=== PATIENT | female | born 1935 | race Hispanic/Latino ===

== ENCOUNTER 2016-06-21 10:45 | Inpatient (IN) | payer MEDICARE, OTHER ==
[2016-06-21 10:48] VITALS: BMI 25.7
--- NOTE | 2016-06-21 11:14 | ED PDOC ---
HPI: Chest Pain Time Seen by Provider: 06/21/16 10:54 History Per: Patient History/Exam Limitations: no limitations Additional Complaint(s): Patient is an 80 yr old female who is c/o dizziness (lightheadedness) that occurred this morning after waking up and walking from bedroom to bathroom. The pt is also c/o midline chest pain pressure-like since last night, and today she also has chest pain as well as some midepigatric abd pain. Also luis SOB. Patient's 1 week ago. PMD: Dr. Cabrales ([place], [place]) Past Medical History Reviewed: Historical Data, Nursing Documentation, Vital Signs Vital Signs: Last Vital Signs Temp 97.5 F L 06/21/16 10:48 Pulse 47 L 06/21/16 14:13 Resp 17 06/21/16 14:13 BP 172/88 H 06/21/16 10:48 Pulse Ox 98 06/21/16 14:55 - Medical History PMH: Atrial Fibrillation, HTN Other PMH: "Irregular Heart Beat", also c/o problem with spleen years ago - Family History Family History: States: Other Other Family History: Cancer - Social History Current smoker - smoking cessation education provided: No Alcohol: None - Home Medications Home Medications: Ambulatory Orders Medication Instructions Recorded ALPRAZolam [Xanax] 0.25 mg PO DAILY PRN 06/21/16 Benacar 20 mg PO DAILY 06/21/16 Carvedilol [Coreg Cr] 40 mg PO DAILY 06/21/16 Cholecalciferol [Vitamin D] 2,000 iu PO DAILY 06/21/16 Rivaroxaban [Xarelto] 20 mg PO DAILY 06/21/16 - Allergies Allergies/Adverse Reactions: Allergies Allergy/AdvReac Type Severity Reaction Status Date / Time Penicillins Allergy Verified 06/21/16 11:05 Review of Systems Constitutional: Negative for: Fever Cardiovascular: Positive for: Chest Pain Respiratory: Positive for: Shortness of Breath Gastrointestinal: Positive for: Nausea Neurological: Positive for: Dizziness. Negative for: Weakness Physical Exam - Reviewed Nursing Documentation Reviewed: Yes - Physical Exam Appears: Positive for: Non-toxic, No Acute Distress Head Exam: Positive for: ATRAUMATIC, NORMAL INSPECTION, NORMOCEPHALIC Skin: Positive for: Normal Color, Warm, Dry Eye Exam: Positive for: Normal appearance, EOMI, PERRL ENT: Positive for: Normal ENT Inspection Neck: Positive for: Normal Cardiovascular/Chest: Positive for: Irregularly Irregular Respiratory: Positive for: Other (decreased breath sounds to bases bilaterally) Gastrointestinal/Abdominal: Positive for: Soft, Tenderness (mild to midepigastric area). Negative for: Guarding, Rebound Back: Positive for: Normal Inspection Rectal: Positive for: Deferred Extremity: Positive for: Normal ROM Lymphatic: Positive for: Deferred Neurologic/Psych: Positive for: Alert. Negative for: Motor/Sensory Deficits - Laboratory Results Result Diagrams: 06/21/16 12:28 06/21/16 13:30 - ECG O2 Sat by Pulse Oximetry: 98 Medical Decision Making Medical Decision Making: Initial Impression: Dizziness and chest pain Differential diagnosis: dizziness secondary to bradycardia, chest pain possible ACS Initial Plan: Will check labs, EKG and get xrays; aspirin .Progress notes: Pt's dizziness is likely due to bradycardia. Rate will sometimes go down to 39. I will hospitalize pt. I discussed case with Dr. Kay and he recommends placing pt on Observation under his service. Disposition - Clinical Impression Clinical Impression: Chest pain, Atrial fibrillation, Bradycardia, Dizziness - Patient ED Disposition Is Patient to be Admitted: Yes - Disposition Disposition Time: 14:54 Condition: FAIR - Pt Status Changed To: Hospital Disposition Of: Observation - POA Present On Arrival: None
[2016-06-21 12:52] LABS: BASO % 0.8 % (0.0-2.0); EOS # 0.1 K/uL (0.0-0.7); EOS % 1.9 % (0.0-4.0); HEMATOCRIT 45.3 % (34.0-47.0); LYMPH # 2.3 K/uL (1.0-4.3); LYMPH % 40.7 % (20.0-40.0); MEAN CELL VOLUME 95.5 fl (81.0-99.0); MEAN CORPUSCULAR HEMOGLOBIN 30.8 pg (27.0-31.0); MEAN CORPUSCULAR HGB CONC 32.2 g/dL (33.0-37.0); MEAN PLATELET VOLUME 12.7 fl (7.2-11.7); MONO # 0.6 K/uL (0.0-0.8); MONO % 11.1 % (0.0-10.0); NEUT # 2.6 K/uL (1.8-7.0); NEUT % 45.5 % (50.0-75.0); NRBC % 0.2 % (0.0-0.0); RED CELL DISTRIBUTION WIDTH 16.1 % (11.5-14.5); WHITE BLOOD COUNT 5.8 K/uL (4.8-10.8)
[2016-06-21 13:00] LABS: RBC URINE 2 /hpf (0-3); URINE BACTERIA FEW (<OCC); URINE BILIRUBIN NEGATIVE (NEGATIVE); URINE BLOOD NEGATIVE (NEGATIVE); URINE COLOR YELLOW (YELLOW); URINE GLUCOSE (UA) NEG (Normal); URINE KETONE NEGATIVE (NEGATIVE); URINE LEUKOCYTE ESTERASE MOD Leu/uL (Negative); URINE PROTEIN NEGATIVE (NEGATIVE); URINE UROBILINOGEN 0.2-1.0 mg/dL (0.2-1.0); WBC URINE 7 /hpf (0-5)
[2016-06-21 13:20] LABS: PARTIAL THROMBOPLASTIN TIME 33.6 SECONDS (23.3-32.5)
[2016-06-21 13:45] LABS: ALB/GLOB RATIO 1.1 (1.0-2.1); ALKALINE PHOSPHATASE 103 U/L (38-126); ALT/SGPT 24 U/L (9-52); AST/SGOT 26 U/L (14-36); BLOOD UREA NITROGEN 36 mg/dl (7-17); CALCIUM 9.5 mg/dL (8.4-10.2); CARBON DIOXIDE 25 mmol/L (22-30); CHLORIDE 106 mmol/L (98-107); GFR AFRICAN-AMERICAN > 60; GLUCOSE,RANDOM 82 mg/dL (65-105); POTASSIUM 4.5 MMOL/L (3.6-5.0); SODIUM 142 mmol/l (132-148); TOTAL PROTEIN 7.4 G/DL (6.3-8.2)
--- NOTE | 2016-06-21 15:46 | RAD ---
PROCEDURE: CHEST RADIOGRAPH, 1 VIEW HISTORY: chest pain COMPARISON: None available. FINDINGS: LUNGS: Clear. PLEURA: No pneumothorax or pleural fluid seen. CARDIOVASCULAR: Normal. OSSEOUS STRUCTURES: No significant abnormalities. VISUALIZED UPPER ABDOMEN: Normal. OTHER FINDINGS: None. IMPRESSION: No active disease.
--- NOTE | 2016-06-21 19:42 | CP.PCM.HP ---
History of Present Illness - History of Present Illness History of Present Illness: CC: Chest Pain and Dizziness History of Present Illness: 80 yr old female who is c/o dizziness (lightheadedness) that occurred this morning after waking up and walking from bedroom to bathroom. The pt is also c/ o midline chest pain pressure-like since last night, and today she also has chest pain as well as some midepigatric abdominal pain. Also some SOB. Patient 's 1 week ago. Present on Admission - Present on Admission Any Indicators Present on Admission: No History of DVT/PE: No History of Uncontrolled Diabetes: No Urinary Catheter: No Decubitus Ulcer Present: No Review of Systems - Review of Systems All systems: reviewed and no additional remarkable complaints except - Cardiovascular Cardiovascular: As Per HPI Past Patient History - Infectious Disease Hx of Infectious Diseases: None - Past Medical History & Family History Past Medical History?: Yes Past Family History: Reviewed and not pertinent - Past Social History Smoking Status: Never Smoked Alcohol: None Drugs: Denies - CARDIAC Hx Cardiac Disorders: Yes Hx Atrial Fibrillation: Yes Hx Hypertension: Yes - PULMONARY Hx Respiratory Disorders: No - NEUROLOGICAL Hx Neurological Disorder: No - HEENT Hx HEENT Problems: No - RENAL Hx Chronic Kidney Disease: No - ENDOCRINE/METABOLIC Hx Endocrine Disorders: No - HEMATOLOGICAL/ONCOLOGICAL Hx Blood Disorders: No - INTEGUMENTARY Hx Dermatological Problems: No - MUSCULOSKELETAL/RHEUMATOLOGICAL Hx Falls: No - GASTROINTESTINAL Hx Gastrointestinal Disorders: No - GENITOURINARY/GYNECOLOGICAL Hx Genitourinary Disorders: No - PSYCHIATRIC Hx Substance Use: No - SURGICAL HISTORY Hx Surgeries: Yes Hx Splenectomy: Yes - ANESTHESIA Hx Anesthesia: Yes Hx Anesthesia Reactions: No Meds Allergies/Adverse Reactions: Allergies Allergy/AdvReac Type Severity Reaction Status Date / Time Penicillins Allergy Verified 06/21/16 11:05 Physical Exam - Constitutional Appears: Well, No Acute Distress - Head Exam Head Exam: ATRAUMATIC, NORMAL INSPECTION, NORMOCEPHALIC - Eye Exam Eye Exam: EOMI, Normal appearance, PERRL Pupil Exam: NORMAL ACCOMODATION, PERRL - ENT Exam ENT Exam: Mucous Membranes Dry, Normal Exam - Neck Exam Neck exam: Positive for: Full Rom, Normal Inspection - Respiratory Exam Respiratory Exam: Clear to Auscultation Bilateral, NORMAL BREATHING PATTERN - Cardiovascular Exam Cardiovascular Exam: Irregular Rhythm, +S1, +S2 - GI/Abdominal Exam GI & Abdominal Exam: Normal Bowel Sounds, Soft. absent: Tenderness - Extremities Exam Extremities exam: Positive for: normal capillary refill, normal inspection. Negative for: joint swelling - Back Exam Back exam: NORMAL INSPECTION. absent: CVA tenderness (L), CVA tenderness (R) - Neurological Exam Neurological exam: Alert, CN II-XII Intact, Normal Gait, Oriented x3, Reflexes Normal - Psychiatric Exam Psychiatric exam: Normal Affect, Normal Mood - Skin Skin Exam: Dry, Intact, Normal Color, Warm Results - Vital Signs Recent Vital Signs: Last Vital Signs Temp 97.8 F 06/21/16 19:29 Pulse 48 L 06/21/16 19:29 Resp 20 06/21/16 19:29 BP 126/57 L 06/21/16 19:29 Pulse Ox 100 06/21/16 19:29 - Labs Result Diagrams: 06/22/16 06:00 06/23/16 06:37 - EKG Data EKG Interpreted by: Other Rate: Bradycardia - EKG Data EKG comments: Atrial Fib with slow ventricular response Incomplete RBBB - Imaging and Cardiology Chest x-ray Status: Report reviewed by me Additional comment: IMPRESSION: No active disease. Venous US Status: Report reviewed by me Additional comment: NO DVT in her LE Assessment & Plan (1) Symptomatic bradycardia Assessment and Plan: Dizziness, Dehydration IVF Atropine on the bed side hold BB She may need Tilt Test Cardiology Consult with Status: Acute (2) Atrial fibrillation Assessment & Plan: Bradycardia Contionue Xoralto Status: Acute (3) Chest pain Assessment & Plan: R/O ACS ASA Seriial Trop and EKG 2D-Echo dry wall sprayer consult Status: Acute
[2016-06-21] MEDS: Sodium Chloride 0.45% 1,000 ML IV SCH (20:41)
--- NOTE | 2016-06-21 21:44 | US ---
EXAM: US Duplex Bilateral Lower Extremity Veins CLINICAL HISTORY: 80 years old, female; Signs and symptoms; Swelling of limb; Lower extremity, bilateral; Additional info: Swelling of the right le and dizziness with humaira TECHNIQUE: Real-time ultrasound scan of the veins of the bilateral lower extremities with color Doppler flow, spectral waveform analysis and compression. COMPARISON: No relevant prior studies available. FINDINGS: Right deep veins: Normal color and spectral Doppler flow. Normal compressibility. No deep vein thrombosis from common femoral to popliteal vein. Right superficial veins: Unremarkable. Left deep veins: Normal color and spectral Doppler flow. Normal compressibility. No deep vein thrombosis from common femoral to popliteal vein. Left superficial veins: Unremarkable. Soft tissues: No popliteal cyst. IMPRESSION: 1. No evidence of DVT within the lower extremities. 2. Incidental/non-acute findings are described above.
[2016-06-22] MEDS: Sodium Chloride 0.45% 1,000 ML IV SCH ×2 (08:17→16:30)
[2016-06-22 08:29] LABS: BASO # 0.1 K/uL (0.0-0.2); BASO % 1.1 % (0.0-2.0); EOS # 0.2 K/uL (0.0-0.7); EOS % 3.2 % (0.0-4.0); HEMATOCRIT 44.3 % (34.0-47.0); LYMPH % 41.9 % (20.0-40.0); MEAN CELL VOLUME 94.7 fl (81.0-99.0); MEAN CORPUSCULAR HEMOGLOBIN 31.5 pg (27.0-31.0); MEAN CORPUSCULAR HGB CONC 33.3 g/dL (33.0-37.0); MEAN PLATELET VOLUME 11.8 fl (7.2-11.7); MONO # 0.4 K/uL (0.0-0.8); MONO % 9.3 % (0.0-10.0); NEUT # 2.1 K/uL (1.8-7.0); NEUT % 44.5 % (50.0-75.0); NRBC % 0.2 % (0.0-0.0); WHITE BLOOD COUNT 4.8 K/uL (4.8-10.8)
[2016-06-22 09:02] LABS: THYROID STIMULATING HORMONE 1.08 mIU/ML (0.46-4.68)
[2016-06-22 09:09] LABS: TROPONIN I 0.015 ng/mL (0.00-0.120)
--- NOTE | 2016-06-22 23:26 | CP.PCM.PN ---
Subjective - Date & Time of Evaluation Date of Evaluation: 06/22/16 Time of Evaluation: 17:00 - Subjective Subjective: States she is feeling better today. Dizziness upon sitting or ambulating Objective - Vital Signs/Intake and Output Vital Signs (last 24 hours): Temp Pulse Resp BP Pulse Ox 98.7 F 63 18 132/63 95 06/22/16 21:00 06/22/16 21:00 06/22/16 21:00 06/22/16 21:00 06/22/16 21:00 - Medications Medications: Current Medications Alprazolam (Xanax) 0.25 mg PO DAILY PRN PRN Reason: Anxiety Stop: 06/28/16 19:37 Atropine Sulfate (Atropine) 1 mg IVP ONCE PRN PRN Reason: Bradycardia with symptoms<35 Cholecalciferol (Vitamin D) 2,000 iu PO DAILY [facility] Last Admin: 06/22/16 08:18 Dose: 2,000 iu Losartan Potassium (Cozaar) 50 mg PO DAILY [facility] Last Admin: 06/22/16 08:18 Dose: 50 mg Rivaroxaban (Xarelto) 20 mg PO DAILY [facility] PRN Reason: Protocol Last Admin: 06/22/16 08:18 Dose: 20 mg - Labs Labs: PT 15.2 SECONDS (9.6-11.2) H 06/21/16 12:28 INR 1.46 (0.92-1.08) H 06/21/16 12:28 APTT 33.6 SECONDS (23.3-32.5) H 06/21/16 12:28 - Constitutional Appears: Well, No Acute Distress - Head Exam Head Exam: ATRAUMATIC, NORMAL INSPECTION, NORMOCEPHALIC - Eye Exam Eye Exam: EOMI, Normal appearance, PERRL Pupil Exam: NORMAL ACCOMODATION, PERRL - ENT Exam ENT Exam: Mucous Membranes Moist, Normal Exam - Neck Exam Neck Exam: Full ROM, Normal Inspection. absent: Lymphadenopathy - Respiratory Exam Respiratory Exam: Clear to Ausculation Bilateral, NORMAL BREATHING PATTERN - Cardiovascular Exam Cardiovascular Exam: REGULAR RHYTHM, +S1, +S2. absent: Murmur - GI/Abdominal Exam GI & Abdominal Exam: Soft, Normal Bowel Sounds. absent: Tenderness - Extremities Exam Extremities Exam: Full ROM, Normal Capillary Refill, Normal Inspection. absent : Joint Swelling, Pedal Edema - Back Exam Back Exam: NORMAL INSPECTION - Neurological Exam Neurological Exam: Alert, Awake, CN II-XII Intact, Normal Gait, Oriented x3 - Psychiatric Exam Psychiatric exam: Normal Affect, Normal Mood - Skin Skin Exam: Dry, Intact, Normal Color, Warm Assessment and Plan (1) Symptomatic bradycardia Assessment & Plan: Dizziness, Dehydration Continue IVF Atropine on the bed side NO BB She may need Tilt Test Utility Appraiser On Board Status: Acute (2) Atrial fibrillation Assessment & Plan: Bradycardia Contionue Xoralto Status: Acute (3) Chest pain Assessment & Plan: ACS ruled out Status: Ruled-out Status: Acute
[2016-06-23 06:57] LABS: ALB/GLOB RATIO 1.1 (1.0-2.1); ALKALINE PHOSPHATASE 87 U/L (38-126); ALT/SGPT 32 U/L (9-52); AST/SGOT 27 U/L (14-36); BILIRUBIN,TOTAL 0.9 mg/dl (0.2-1.3); BLOOD UREA NITROGEN 22 mg/dl (7-17); CALCIUM 9.4 mg/dL (8.4-10.2); CARBON DIOXIDE 29 mmol/L (22-30); CHLORIDE 105 mmol/L (98-107); GFR AFRICAN-AMERICAN > 60; GLUCOSE,RANDOM 94 mg/dL (65-105); POTASSIUM 4.4 MMOL/L (3.6-5.0); SODIUM 141 mmol/l (132-148); TOTAL PROTEIN 6.9 G/DL (6.3-8.2)
--- NOTE | 2016-06-23 09:10 | CARD ---
APPROVED REPORT EKG Measurement Heart [id number] <Conclusion> Atrial fibrillation with slow ventricular response Incomplete right bundle branch block Nonspecific T wave abnormality Abnormal ECG
--- NOTE | 2016-06-23 10:55 | CP.PCM.CON ---
History of Present Illness - History of Present Illness History of Present Illness: Full Note Dictated. Near syncope with severe bradycardia (48hrs past last dose of B blockers) Chr A Fib HTN Spoke with her business management professor (??? "Long" pauses) Will record a Holter recording Past Patient History - Past Medical History & Family History Past Medical History?: Yes - Past Social History Smoking Status: Never Smoked - CARDIAC Hx Cardiac Disorders: Yes Hx Atrial Fibrillation: Yes Hx Hypertension: Yes - PULMONARY Hx Respiratory Disorders: No - NEUROLOGICAL Hx Neurological Disorder: No - HEENT Hx HEENT Problems: No - RENAL Hx Chronic Kidney Disease: No - ENDOCRINE/METABOLIC Hx Endocrine Disorders: No - HEMATOLOGICAL/ONCOLOGICAL Hx Blood Disorders: No - INTEGUMENTARY Hx Dermatological Problems: No - MUSCULOSKELETAL/RHEUMATOLOGICAL Hx Falls: No - GASTROINTESTINAL Hx Gastrointestinal Disorders: No - GENITOURINARY/GYNECOLOGICAL Hx Genitourinary Disorders: No - PSYCHIATRIC Hx Substance Use: No - SURGICAL HISTORY Hx Surgeries: Yes Hx Splenectomy: Yes - ANESTHESIA Hx Anesthesia: Yes Hx Anesthesia Reactions: No Meds Allergies/Adverse Reactions: Allergies Allergy/AdvReac Type Severity Reaction Status Date / Time Penicillins Allergy Verified 06/21/16 11:05 - Medications Medications: Current Medications Alprazolam (Xanax) 0.25 mg PO DAILY PRN PRN Reason: Anxiety Stop: 06/28/16 19:37 Atropine Sulfate (Atropine) 1 mg IVP ONCE PRN PRN Reason: Bradycardia with symptoms<35 Cholecalciferol (Vitamin D) 2,000 iu PO DAILY [facility] Last Admin: 06/23/16 08:37 Dose: 2,000 iu Losartan Potassium (Cozaar) 50 mg PO DAILY [facility] Last Admin: 06/22/16 08:18 Dose: 50 mg Rivaroxaban (Xarelto) 20 mg PO DAILY [facility] PRN Reason: Protocol Last Admin: 06/23/16 08:36 Dose: 20 mg Results - Vital Signs Recent Vital Signs: Last Vital Signs Temp 97.6 F 06/23/16 08:00 Pulse 50 L 06/23/16 08:00 Resp 18 06/23/16 08:00 BP 128/59 L 06/23/16 08:00 Pulse Ox 97 06/23/16 08:00 - Labs Result Diagrams: 06/22/16 06:00 06/23/16 06:37 Labs: Laboratory Results - last 24 hr 06/23/16 06:37 Sodium 141 Potassium 4.4 Chloride 105 Carbon Dioxide 29 Anion Gap 12 BUN 22 H Creatinine 0.8 Est GFR ( Amer) > 60 Est GFR (Non-Af Amer) > 60 Random Glucose 94 Calcium 9.4 Total Bilirubin 0.9 AST 27 ALT 32 Alkaline Phosphatase 87 Total Protein 6.9 Albumin 3.6 Globulin 3.4 Albumin/Globulin Ratio 1.1
--- NOTE | 2016-06-23 11:34 | CON ---
DATE: 06/23/2016 She is hospitalized under Dr. Kay's care in room 410, bed 1. HISTORY OF PRESENT ILLNESS: This lady came in to the hospital complaining of sudden onset of lighthe adedness and near syncope and was found to be severely bradycardic in the Emergency Room. She has kong d chronic atrial fibrillation and has been taking a beta-patricia for the same. She has never been a smoker or a diabetic, and has never suffered a myocardial infarction. The patient has been on oral a nticoagulation in the form of rivaroxaban. At home along with Coreg, the patient was taking Benicar for her blood pressure control and Xanax for anxiety. She has never manifested overt congestive card iac failure. The patient has never suffered a syncopal episode. In the Emergency Room, she was found to be markedly bradycardic and was kept off of any beta-blockers . 48 hours later, her telemetry still shows periods of bradycardia with a heart rate in the range of 33-35 beats per minute. She denies any shortness of breath or pedal edema. PHYSICAL EXAMINATION: GENERAL: Shows an elderly, anxious lady, alert, awake, coherent. VITAL SIGNS: Afebrile with a pulse rate of 62 beats per minute, irregularly irregular at the time of examination with a blood pressure of 130/70 mmHg. NECK: Her jugular venous pressure was not elevated. EXTREMITIES: There was no edema of the lower extremities. The pedal pulses were well felt. There w ere no carotid bruits. HEART: The apex was in the 5th space. The first and second heart sounds were normal. There was no murmur, no gallop. LUNGS: No rales. ABDOMEN: Soft. Liver and spleen were not palpable. Her electrocardiogram showed atrial fibrillation with a QRS duration, which was 94 milliseconds and n onspecific ST-T changes. No Q-waves suggestive of a prior myocardial infarction was evident. LABORATORY DATA: Showed a hemoglobin and hematocrit of 14.7 g and 44.3% respectively. The platelet count was 121,000. Her BUN and creatinine were 22 and 0.8 mg percent. Her electrolytes were normal. Her TSH also indicated that she was euthyroid. IMPRESSION: At this time is chronic atrial fibrillation with marked bradycardia initially while on b eta-blockers and near syncopal episode. I have spoken with her branch director, who recommends finding out what the longest ____ interval is. This will be done by obtaining a Holter recording, and the pa dipeshnt may possibly end up requiring a pacemaker. This would be discussed once the heart recording is available. Sarwat Mcdonough MD cc: 23 TT: 06/23/2016 11:33:33 Confirmation # [id number] Dictation # [id number] [email or web address]
--- NOTE | 2016-06-23 16:37 | CARD ---
APPROVED REPORT EXAM: Two-dimensional and M-mode echocardiogram with Doppler and color Doppler. Other Information Quality : GoodRhythm : Bradycardia INDICATION Abnormal EKG/Arrhythmia 2D DIMENSIONS IVSd0.87 (0.7-1.1cm)LVDd4.46 (3.9-5.9cm) LVOT Diameter2.17 (1.8-2.4cm)PWd0.92 (0.7-1.1cm) IVSs1.55 (0.8-1.2cm)LVDs2.95 (2.5-4.0cm) FS (%) 33.8 %PWs1.34 (0.8-1.2cm) LVEF (%)45.0 (>50%) M-Mode DIMENSIONS Left Atrium (MM)5.09 (2.5-4.0cm)IVSd0.84 (0.7-1.1cm) Aortic Root3.13 (2.2-3.7cm)LVDd5.38 (4.0-5.6cm) Aortic Cusp Exc.1.66 (1.5-2.0cm)PWd0.88 (0.7-1.1cm) IVSs1.38 cmFS (%) 42 % LVDs3.09 (2.0-3.8cm)PWs1.53 cm Mitral Valve E/A ratio0.0 TDI E/Lateral E'0.0E/Medial E'0.0 Pulmonary Valve PV Peak Epulsnoq68.3cm/s Tricuspid Valve TR Peak [id number]/sRAP [id number] Peak Gr.39mmHg [id number] LEFT VENTRICLE The left ventricle is normal size. There is mild concentric left ventricular hypertrophy. The systolic function is mildly impaired. There is a flattened septum Paient is in A Fib RIGHT VENTRICLE The right ventricle is moderately dilated. There is normal right ventricular wall thickness. The right ventricular systolic function is normal. ATRIA The left atrium is severely dilated. The right atrium is severely dilated. AORTIC VALVE The aortic valve is not well visualized. There is trace aortic regurgitation. There is no aortic valvular stenosis. MITRAL VALVE The mitral valve is moderately thickened. There is no mitral valve stenosis. Mitral regurgitation is moderate. TRICUSPID VALVE The tricuspid valve is normal in structure There is moderate tricuspid regurgitation. There is moderate pulmonary hypertension. PULMONIC VALVE The pulmonary valve is normal in structure and function. There is no pulmonic valvular regurgitation. GREAT VESSELS The aortic root is normal in size. The IVC was not visualized. PERICARDIAL EFFUSION The pericardium appears normal. <Conclusion> The left ventricle is normal size. There is mild concentric left ventricular hypertrophy. The systolic function is mildly impaired. There is a flattened septum Mitral regurgitation is moderate. There is moderate tricuspid regurgitation. There is moderate pulmonary hypertension.
--- NOTE | 2016-06-23 21:29 | CP.PCM.PN ---
Subjective - Date & Time of Evaluation Date of Evaluation: 06/23/16 Time of Evaluation: 18:15 - Subjective Subjective: Seen and examined at the bed side. Still Bradycardia but no dizziness. Play Reader evaluated the patient and recommended Holter Monitor and started. Objective - Vital Signs/Intake and Output Vital Signs (last 24 hours): Temp Pulse Resp BP Pulse Ox 98 F 60 20 111/56 L 96 06/23/16 19:15 06/23/16 19:15 06/23/16 19:15 06/23/16 19:15 06/23/16 19:15 - Medications Medications: Current Medications Alprazolam (Xanax) 0.25 mg PO DAILY PRN PRN Reason: Anxiety Stop: 06/28/16 19:37 Atropine Sulfate (Atropine) 1 mg IVP ONCE PRN PRN Reason: Bradycardia with symptoms<35 Cholecalciferol (Vitamin D) 2,000 iu PO DAILY [facility] Last Admin: 06/23/16 08:37 Dose: 2,000 iu Losartan Potassium (Cozaar) 50 mg PO DAILY [facility] Last Admin: 06/23/16 12:40 Dose: 50 mg Rivaroxaban (Xarelto) 20 mg PO DAILY [facility] PRN Reason: Protocol Last Admin: 06/23/16 08:36 Dose: 20 mg - Labs Labs: 06/23/16 06:37 PT 15.2 SECONDS (9.6-11.2) H 06/21/16 12:28 INR 1.46 (0.92-1.08) H 06/21/16 12:28 APTT 33.6 SECONDS (23.3-32.5) H 06/21/16 12:28 - Constitutional Appears: Well, No Acute Distress - Head Exam Head Exam: ATRAUMATIC, NORMAL INSPECTION, NORMOCEPHALIC - Eye Exam Eye Exam: EOMI, Normal appearance, PERRL Pupil Exam: NORMAL ACCOMODATION, PERRL - ENT Exam ENT Exam: Mucous Membranes Moist, Normal Exam - Neck Exam Neck Exam: Full ROM, Normal Inspection. absent: Lymphadenopathy - Respiratory Exam Respiratory Exam: Clear to Ausculation Bilateral, NORMAL BREATHING PATTERN - Cardiovascular Exam Cardiovascular Exam: Irregular Rhythm, REGULAR RHYTHM, +S1, +S2. absent: Murmur - GI/Abdominal Exam GI & Abdominal Exam: Soft, Normal Bowel Sounds. absent: Tenderness - Extremities Exam Extremities Exam: Full ROM, Normal Capillary Refill, Normal Inspection. absent : Joint Swelling, Pedal Edema - Back Exam Back Exam: NORMAL INSPECTION - Neurological Exam Neurological Exam: Alert, Awake, CN II-XII Intact, Normal Gait, Oriented x3 - Psychiatric Exam Psychiatric exam: Normal Affect, Normal Mood - Skin Skin Exam: Dry, Intact, Normal Color, Warm Assessment and Plan (1) Symptomatic bradycardia Assessment & Plan: Dizziness, Dehydration IVF discontinued Atropine on the bed side Holter Monitor NO BB Play Reader On Board Status: Acute (2) Atrial fibrillation Assessment & Plan: Bradycardia Contionue Xoralto Status: Acute (3) Chest pain Assessment & Plan: ACS ruled out Status: Ruled-out
[2016-06-24 15:39] VITALS: BP 126/69; PULSE 66; RESP 18; TEMP 98.3; O2SAT 96
--- NOTE | 2016-06-24 19:03 | CP.PCM.DIS ---
Provider - Provider Date of Admission: 06/22/16 16:18 Attending physician: Anabela Kay MD Time Spent in preparation of Discharge (in minutes): 30 Hospital Course - Lab Results Lab Results: Most Recent Lab Values WBC 4.8 K/uL (4.8-10.8) 06/22/16 06:00 RBC 4.68 Mil/uL (3.80-5.20) 06/22/16 06:00 Hgb 14.7 g/dL (12.0-16.0) 06/22/16 06:00 Hct 44.3 % (34.0-47.0) 06/22/16 06:00 MCV 94.7 fl (81.0-99.0) 06/22/16 06:00 MCH 31.5 pg (27.0-31.0) H 06/22/16 06:00 MCHC 33.3 g/dL (33.0-37.0) 06/22/16 06:00 RDW 16.0 % (11.5-14.5) H 06/22/16 06:00 Plt Count 112 K/uL (130-400) L 06/22/16 06:00 MPV 11.8 fl (7.2-11.7) H 06/22/16 06:00 Neut % (Auto) 44.5 % (50.0-75.0) L 06/22/16 06:00 Lymph % (Auto) 41.9 % (20.0-40.0) H 06/22/16 06:00 [place] % (Auto) 9.3 % (0.0-10.0) 06/22/16 06:00 Eos % (Auto) 3.2 % (0.0-4.0) 06/22/16 06:00 Baso % (Auto) 1.1 % (0.0-2.0) 06/22/16 06:00 Neut # 2.1 K/uL (1.8-7.0) 06/22/16 06:00 Lymph # 2.0 K/uL (1.0-4.3) 06/22/16 06:00 [place] # 0.4 K/uL (0.0-0.8) 06/22/16 06:00 Eos # 0.2 K/uL (0.0-0.7) 06/22/16 06:00 Baso # 0.1 K/uL (0.0-0.2) 06/22/16 06:00 PT 15.2 SECONDS (9.6-11.2) H 06/21/16 12:28 INR 1.46 (0.92-1.08) H 06/21/16 12:28 APTT 33.6 SECONDS (23.3-32.5) H 06/21/16 12:28 Sodium 141 mmol/l (132-148) 06/23/16 06:37 Potassium 4.4 MMOL/L (3.6-5.0) 06/23/16 06:37 Chloride 105 mmol/L (98-107) 06/23/16 06:37 Carbon Dioxide 29 mmol/L (22-30) 06/23/16 06:37 Anion Gap 12 (10-20) 06/23/16 06:37 BUN 22 mg/dl (7-17) H 06/23/16 06:37 Creatinine 0.8 mg/dL (0.7-1.2) 06/23/16 06:37 Est GFR ( Amer) > 60 06/23/16 06:37 Est GFR (Non-Af Amer) > 60 06/23/16 06:37 Random Glucose 94 mg/dL (65-105) 06/23/16 06:37 Calcium 9.4 mg/dL (8.4-10.2) 06/23/16 06:37 Total Bilirubin 0.9 mg/dl (0.2-1.3) 06/23/16 06:37 AST 27 U/L (14-36) 06/23/16 06:37 ALT 32 U/L (9-52) 06/23/16 06:37 Alkaline Phosphatase 87 U/L (38-126) 06/23/16 06:37 Total Creatine Kinase 33 U/L (30-135) 06/21/16 13:30 CK-MB (Mass) 2.11 ng/mL (0.0-3.38) 06/21/16 13:30 Troponin I 0.0200 ng/mL (0.00-0.120) 06/22/16 12:30 Total Protein 6.9 G/DL (6.3-8.2) 06/23/16 06:37 Albumin 3.6 g/dL (3.5-5.0) 06/23/16 06:37 Globulin 3.4 gm/dL (2.2-3.9) 06/23/16 06:37 Albumin/Globulin Ratio 1.1 (1.0-2.1) 06/23/16 06:37 Vitamin B12 462 pg/mL (239-931) 06/22/16 06:00 TSH 3rd Generation 1.08 mIU/ML (0.46-4.68) 06/22/16 06:00 Urine Color Yellow (YELLOW) 06/21/16 12:28 Urine Clarity Clear (Clear) 06/21/16 12:28 Urine pH 6.0 (5.0-8.0) 06/21/16 12:28 Ur Specific [place] 1.012 (1.003-1.030) 06/21/16 12:28 Urine Protein Negative mg/dL (NEGATIVE) 06/21/16 12:28 Urine Glucose (UA) Neg mg/dL (Normal) 06/21/16 12:28 Urine Ketones Negative mg/dL (NEGATIVE) 06/21/16 12:28 Urine Blood Negative (NEGATIVE) 06/21/16 12:28 Urine Nitrate Negative (NEGATIVE) 06/21/16 12:28 Urine Bilirubin Negative (NEGATIVE) 06/21/16 12:28 Urine Urobilinogen 0.2-1.0 mg/dL (0.2-1.0) 06/21/16 12:28 Ur Leukocyte Esterase Mod [place]/uL (Negative) 06/21/16 12:28 Urine RBC (Auto) 2 /hpf (0-3) 06/21/16 12:28 Urine Microscopic WBC 7 /hpf (0-5) H 06/21/16 12:28 Urine Bacteria Few (<OCC) H 06/21/16 12:28 Discharge Exam - Head Exam Head Exam: ATRAUMATIC, NORMAL INSPECTION, NORMOCEPHALIC - Eye Exam Eye Exam: EOMI, Normal appearance, PERRL Pupil Exam: NORMAL ACCOMODATION, PERRL - ENT Exam ENT Exam: Mucous Membranes Moist - Respiratory Exam Respiratory Exam: Clear to PA & Lateral, NORMAL BREATHING PATTERN - Cardiovascular Exam Cardiovascular Exam: REGULAR RHYTHM, +S1, +S2 - GI/Abdominal Exam GI & Abdominal Exam: Normal Bowel Sounds - Exam External exam: NORMAL EXTERNAL EXAM - Extremities Exam Extremities exam: calf tenderness, full ROM, normal capillary refill - Back Exam Back exam: NORMAL INSPECTION. absent: CVA tenderness (L), CVA tenderness (R) - Neurological Exam Neurological exam: Alert, CN II-XII Intact, Normal Gait, Oriented x3, Reflexes Normal - Psychiatric Exam Psychiatric exam: Normal Affect, Normal Mood - Skin Skin Exam: Dry, Intact, Normal Color, Warm Discharge Plan - Follow Up Plan Condition: FAIR Disposition: AGAINST MEDICAL ADVICE Instructions: Atrial Fibrillation (DC), Bradycardia (DC)
--- NOTE | 2016-06-25 17:07 | CARD ---
APPROVED REPORT Reason for Test: BRADYCARDIA Hookup date: 2016-06-23 Removal date: 2016-06-24 Scan date: 2016-06-25 Recording time: 23 HR 41 MIN Heart Rate Data Total Beats: 43277 Min HR: 33 BPM at 6:57PM Avg HR: 54 BPM Max HR: 84 BPM at 5:50PM Ventricular Ectopy Total VE Beats: 5 (0.0%) Single/Interp PVC: 5/0 Supraventricular Ectopy Drop/Late: 519/0 Longest R-R: 3.0 sec at 6:47 AM Atrial Fibrillation AFib Beats: 04714 (98.7%) Duration: 1393.1 min Events: 36 Conclusion Atrial Fibrillation PVCs vs aberrancy Pauses, the longest is 3 seconds
== END 2016-06-24 19:37 | disposition left against medical advice (07) | DRG 310 ==
LOC: H.ER 10:45 → H.ERHOLD 14:52 → H.TEL 17:17 → OBSVTOIN 06-22 16:18
PROVIDERS: ADMIT Internal Medicine; ATTEND Internal Medicine
DX: R00.1 Bradycardia, unspecified (principal); E86.0 Dehydration; I48.2 Chronic atrial fibrillation; I10 Essential (primary) hypertension; R07.9 Chest pain, unspecified; Z79.01 Long term (current) use of anticoagulants; Z88.0 Allergy status to penicillin; Z90.81 Acquired absence of spleen